=== PATIENT | female | born 1970 | race Caucasian/White ===

== ENCOUNTER → 2020-05-21 | Outpatient (CLI) | payer OTHER ==
[~2020-05-21] MED LIST: CEFTIN 250250 MG/TAB PO; PREDNISONE20 MG PO; PYRIDIUM200 M1 PO; SINGULAIR4 MG PO; TOPAMAX15 MG PO; TOVIAZ4 MG PO; ZANTAC 7575 MG PO; ZOLOFT20 MG/ML PO; ZYRTEC5 M1 PO
== END ==
LOC: MC.RAD 05-06 14:45
DX: Z12.31 Encounter for screening mammogram for malignant neoplasm of breast (principal); Z98.82 Breast implant status

== ENCOUNTER → 2021-09-09 | Outpatient (CLI) | payer OTHER | LOC: MC.RAD 13:07 | DX: Z12.31 Encounter for screening mammogram for malignant neoplasm of breast (principal); N64.89 Other specified disorders of breast ==

== ENCOUNTER → 2024-02-27 | Outpatient (CLI) | payer OTHER | LOC: MC.RAD 14:07 | DX: Z12.31 Encounter for screening mammogram for malignant neoplasm of breast (principal) ==